=== PATIENT | male | born 1950 | race Caucasian/White ===

== ENCOUNTER 2016-12-19 17:39 | Inpatient (IN) ==
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
[2016-12-19 19:18] LABS: Basophils % 0.2 %; Eosinophils # 0.1 K/mcL (0.0-0.6); Eosinophils % 1.4 %; Hematocrit 44.4 % (37.5-50.1); Hemoglobin 15.2 g/dL (12.9-16.9); Immature Granulocytes % 0.4 % (0-4); Immature Platelets 2.7 % (1.1-6.1); Lymphocytes # 1.3 K/mcL (0.6-4.6); Lymphocytes % 14.1 %; Mean Corpuscular HGB Conc 34.2 g/dL (31.6-35.5); Mean Corpuscular Volume 90.6 fL (83.0-100.0); Mean Platelet Volume 8.7 fL (9.4-12.4); Monocytes # 0.8 K/mcL (0.0-1.3); Monocytes % 7.9 %; Neutrophils # 7.2 K/mcL (1.6-8.9); Platelet Count 211 K/mcL (140-400); Red Cell Distribution Width 11.6 % (11.5-14.5)
[2016-12-19 19:23] LABS: INR 1.1; Prothrombin Time 12.1 Seconds (9.4-12.1)
[2016-12-19 19:25] LABS: Activated Partial Thrombo Time 29.4 Seconds (26.0-36.0)
[2016-12-19 19:29] LABS: BUN/Creatinine Ratio 13 (6-26); Blood Urea Nitrogen 11 mg/dL (8-26); Calcium 9.8 mg/dL (8.6-10.8); Carbon Dioxide 28 mEq/L (19-29); Chloride 100 mEq/L (98-109); Glucose 96 mg/dL (70-99); Osmolality,Calculated 283 (280-300); Potassium 4.5 mEq/L (3.5-4.5); Sodium 137 mEq/L (136-145); eGFR For African Americans > 60 (> 60); eGFR For Non-African Americans > 60 (> 60)
[2016-12-19] MEDS ORDERED: *HR* Enoxaparin 80 MG/0.8 ML SYRINGE SQ STA (20:01)
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
[2016-12-20] MEDS: traMADol 50 MG TABLET PO PRN ×3 (00:03→21:04)
[2016-12-20 03:07] LABS: Basophils % 0.4 %; Eosinophils # 0.3 K/mcL (0.0-0.6); Eosinophils % 3.3 %; Hematocrit 42.7 % (37.5-50.1); Hemoglobin 14.9 g/dL (12.9-16.9); Immature Granulocytes % 0.2 % (0-4); Immature Platelets 2.3 % (1.1-6.1); Lymphocytes % 24.8 %; Mean Corpuscular HGB Conc 34.9 g/dL (31.6-35.5); Mean Corpuscular Hemoglobin 31.6 pg (28.0-33.3); Mean Corpuscular Volume 90.7 fL (83.0-100.0); Mean Platelet Volume 9.3 fL (9.4-12.4); Monocytes # 0.8 K/mcL (0.0-1.3); Monocytes % 9.2 %; Neutrophils # 5.1 K/mcL (1.6-8.9); Platelet Count 209 K/mcL (140-400); Red Blood Count 4.71 M/mcL (4.19-5.50); Red Cell Distribution Width 11.7 % (11.5-14.5); Segmented Neutrophils % 62.1 %
[2016-12-20 03:19] LABS: BUN/Creatinine Ratio 15 (6-26); Blood Urea Nitrogen 14 mg/dL (8-26); Calcium 9.3 mg/dL (8.6-10.8); Carbon Dioxide 26 mEq/L (19-29); Chloride 102 mEq/L (98-109); Glucose 99 mg/dL (70-99); Osmolality,Calculated 287 (280-300); Potassium 4.1 mEq/L (3.5-4.5); Sodium 138 mEq/L (136-145); eGFR For African Americans > 60 (> 60); eGFR For Non-African Americans > 60 (> 60)
[2016-12-20] MEDS: *HR* Enoxaparin 80 MG/0.8 ML SYRINGE SQ SCH ×2 (05:48→16:57)
[2016-12-20] MEDS: Famotidine 20 MG TABLET PO SCH ×2 (08:23→21:05)
--- NOTE | 2016-12-20 13:10 | Internal Med Progress Note ---
Date of Encounter: 12/20/16 Time of Encounter: 08:45 - Assessment and plan (1) Acute pain of right lower extremity Current Visit: Yes Status: Acute Assessment and plan: Pt with thrombus to RLE. Pt reports 6/10 pain. Will continue to monitor. Pt takes Tramadol 100mg po qid prn, will continue here. (2) Anxiety Current Visit: Yes Status: Acute Assessment and plan: Chronic. Continue home medications. (3) Deep vein thrombosis of lower extremity Current Visit: Yes Status: Acute Assessment and plan: Pt with thrombus noted in mid SFV, popliteal, gastocs, posterior tibial, and peroneal veins. Lovenox 80mg SQ BID. Will get foster care social worker on board for assistance with financial concerns with medications on discharge. Pt reports pain to RLE, calf tender to palpation, pt has faint pedal pulse. Foot pink. Qualifiers: Affected thrombotic vein of extremity: popliteal Chronicity: acute Laterality: right Qualified Code(s): I82.431 - Acute embolism and thrombosis of right popliteal vein - Time Spent With Patient less than 15 minutes - Subjective Interval history: Pt was seen at 0845. He is pleasant and alert, reports pain to RLE. He is also concerned about paying for anticoagulation and [facility] are going [facility]. He is unable to pay for Xarelto or Lovenox. Reports 6/10 RLE pain, is requesting pain medication. - Constitutional Vitals: Temp Pulse Resp BP Pulse Ox 98.8 F 74 16 113/56 95 12/20/16 11:03 12/20/16 11:03 12/20/16 11:03 12/20/16 11:03 12/20/16 11:03 General appearance: Present: mild distress, A&O X 3, pleasant, answers questions appropriately - Head Head exam: Present: atraumatic, normal inspection, normocephalic - Eye Eye exam: Present: conjuntiva pink, sclera anicteric - Neck Neck exam general surgery: Present: supple, trachea midline. Absent: lymphadenopathy - Respiratory Respiratory exam: Present: CTAB. Absent: accessory muscle use, chest wall tenderness, rales, rhonchi, wheezes - Cardiovascular Cardiovascular exam: Present: RRR, +S1, +S2. Absent: diastolic murmur, gallop, rubs, systolic murmur - GI/Abdominal GI/Abdominal exam: Present: normal bowel sounds, soft. Absent: distended, hepatomegaly, tenderness - Extremities Exam Extremities exam: Present: calf tenderness, normal capillary refill, tenderness , warm, radial pulses palpable and symmetrical. Absent: cyanotic, pedal edema - Neurological Exam Neurological exam: Present: alert, oriented X3, no focal deficits. Absent: facial droop, speech deficit - Skin Skin exam: Present: dry, intact, normal color, warm. Absent: rash Internal Medicine: Result - Labs CBC & Chem 7: 12/20/16 02:33 12/20/16 02:33 Labs: Short CBC 12/20/16 Range/Units 02:33 WBC 8.2 (4.3-11.1) K/mcL Hgb 14.9 (12.9-16.9) g/dL Hct 42.7 (37.5-50.1) % Plt Count 209 (140-400) K/mcL Neutrophils # 5.1 (1.6-8.9) K/mcL BMP 12/20/16 02:33 Sodium 138 Potassium 4.1 Chloride 102 Carbon Dioxide 26 BUN 14 Creatinine 0.95 Glucose 99 Calcium 9.3 - ABG Interpretation ABG results: PT/INR, D-dimer PT 12.1 Seconds (9.4-12.1) 12/19/16 19:11 Consult Discharge Plan - Plan Referrals: Randy Villalobos MD [Primary Care Provider] -
--- NOTE | 2016-12-20 19:04 | Electrocardiograph Report ---
[address] [address] Test Date: 2016-12-19 Pat Name: Russel Montelongo Department: 102 Room: 3B24 Gender: M Manager Company: Am : 1950 Requested By: Nallely De León Order Number: [id number] Reading MD: Faisal De La Paz MD Measurements Intervals [place] Rate: 77 P: 63 MA: 156 QRS: 44 QRSD: 96 T: 50 QT: 347 QTc: 379 Interpretive Statements SINUS RHYTHM LEFT ATRIAL ENLARGEMENT Electronically Signed On 12-20-2016 19:03:00 EDT by Faisal De La Paz MD
[2016-12-21 02:12] LABS: Basophils % 0.4 %; Eosinophils # 0.3 K/mcL (0.0-0.6); Eosinophils % 3.2 %; Hematocrit 40.3 % (37.5-50.1); Hemoglobin 13.7 g/dL (12.9-16.9); Immature Granulocytes % 0.4 % (0-4); Lymphocytes # 1.8 K/mcL (0.6-4.6); Lymphocytes % 23.4 %; Mean Corpuscular Hemoglobin 30.8 pg (28.0-33.3); Mean Corpuscular Volume 90.6 fL (83.0-100.0); Mean Platelet Volume 9.2 fL (9.4-12.4); Monocytes # 0.6 K/mcL (0.0-1.3); Monocytes % 8.1 %; Platelet Count 208 K/mcL (140-400); Red Blood Count 4.45 M/mcL (4.19-5.50); Red Cell Distribution Width 11.7 % (11.5-14.5); Segmented Neutrophils % 64.5 %
[2016-12-21 02:31] LABS: BUN/Creatinine Ratio 16 (6-26); Blood Urea Nitrogen 16 mg/dL (8-26); Calcium 9.2 mg/dL (8.6-10.8); Carbon Dioxide 25 mEq/L (19-29); Chloride 104 mEq/L (98-109); Glucose 91 mg/dL (70-99); Osmolality,Calculated 287 (280-300); Potassium 4.2 mEq/L (3.5-4.5); Sodium 138 mEq/L (136-145); eGFR For African Americans > 60 (> 60); eGFR For Non-African Americans > 60 (> 60)
[2016-12-21] MEDS: *HR* Enoxaparin 80 MG/0.8 ML SYRINGE SQ SCH ×2 (05:23→16:39)
[2016-12-21] MEDS: Famotidine 20 MG TABLET PO SCH (08:44)
[2016-12-21] MEDS: traMADol 50 MG TABLET PO PRN ×2 (08:48→15:24)
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
--- NOTE | 2016-12-21 14:42 | Event Note ---
Date of Encounter: 12/21/16 Time of Encounter: 14:22 Spoke with Nallely De León CNP regarding patient earlier today regarding newly diagnosed DVT and workup regarding DVT and hypercoagulable state. I reviewed the chart and all of his testing results. Also discussed this patient with Dr. Britt who felt that there was no urgency in getting the workup done while he is an inpatient. He felt that this could easily be done on an outpatient basis. I spoke to Nallely De León CNP again regarding Dr. Britt's recommendations. He will be discharged today on Lovenox. He will need a follow-up consultation with Dr. Britt scheduled.
[2016-12-21 15:42] VITALS: BP 119/78
--- NOTE | 2016-12-21 16:58 | Venous Imaging Report ---
LE Venous Duplex Patient Name:Russel Montelongo Order Number:[id number] Procedure Date:12/19/2016 Date:1950Age:66 yrs Gender:Male Location: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 Recommendations: Test completed on 12/19/2016 at 6:52:00 pm. Critical findings reported to Dr Crawley in person at 7:00:00 pm on 12/19/2016 by Elizabeth Avelar RDCS, IJEOMA. Findings Venous Duplex Results: Right: Venous imaging of the lower extremity reveals full patency and normal vessel compressibility of the right distal iliac, right common femoral, right great saphenous and right lesser saphenous. Doppler signals in the evaluated veins were normal. The right superficial femoral demonstrates a partially compressible vein. Flow was continuous and it did augment. The right popliteal demonstrates an incompressible vein. Flow was absent and it did not augment. The right posterior tibial demonstrates an incompressible vein. Flow was absent and it did not augment. The right peroneal demonstrates an incompressible vein. Flow was absent and it did not augment. The right gastrocnemius demonstrates an incompressible vein. Flow was absent and it did not augment. Prior Study: No prior study available for comparison. Lower Extremity Venous Duplex Side Vein Compress Spontaneous Flow Augment Diameter (cm) Depth (cm) Right Distal Iliac Normal Yes Phasic Yes Right Common Femoral Normal Yes Phasic Yes Right Superficial Femoral Partial no Continuous yes Right Popliteal None no Absent no Right Posterior Tibial None no Absent no Right Peroneal None no Absent no Right Great Saphenous Normal Yes Phasic Yes Right Lesser Saphenous Normal Yes Phasic Yes Right Gastrocnemius None no Absent no Updated by Amando Kwon MD, FACS on 12/21/2016 4:51:05 PM Amando Kwon MD electronically signed on 12/21/2016 4:51:31 PM with status of Final
[2016-12-21] MEDS ORDERED: *HR* Warfarin 3 MG TABLET PO ONE (18:00)
== END 2016-12-21 18:15 | disposition home or self-care (01) | DRG 301 ==
LOC: EMEROO 17:39 → 3BNU 17:39 → EDSEX 17:39 → 3BNU 20:34
PROVIDERS: ADMIT Hospitalist; ATTEND Registered Nurse